=== PATIENT | male | born 1995 | race Caucasian/White ===

== ENCOUNTER 2020-02-19 15:21 | Outpatient (REF) | payer OTHER, SELFPAY | END 2020-02-19 15:22 | disposition home or self-care (01) | LOC: HO.LAB 15:21 | PROVIDERS: PCP Family Medicine; Visit Provider Internal Medicine | DX: Z20.828 Contact with and (suspected) exposure to other viral communicable diseases (principal) | CPT/HCPCS: U0003 ==

== ENCOUNTER 2020-08-04 13:10 | Outpatient (REF) | payer OTHER, SELFPAY ==
[2020-08-04 13:54] LABS: COVID-19 Test Negative (Negative)
== END 2020-08-04 13:11 | disposition home or self-care (01) ==
LOC: HO.LAB 13:10
PROVIDERS: Visit Provider Internal Medicine
DX: Z20.822 Contact with and (suspected) exposure to COVID-19 (principal)
CPT/HCPCS: 36415; 87635; C9803

== ENCOUNTER 2021-01-16 09:35 | Outpatient (REF) | payer OTHER, SELFPAY | END 2021-01-16 09:36 | disposition home or self-care (01) | LOC: HO.LAB 09:35 | PROVIDERS: PCP Family Medicine; Visit Provider Internal Medicine | DX: Z20.822 Contact with and (suspected) exposure to COVID-19 (principal) | CPT/HCPCS: C9803; U0003; U0005 ==

== ENCOUNTER 2024-12-23 19:52 | Emergency (ER) | payer MEDICAID, SELFPAY ==
[2024-12-23 19:54] VITALS: BP 164/100; PULSE 104; RESP 25; TEMP 36.6; O2SAT 98; BMI 23.6
--- NOTE | 2024-12-23 20:03 | ED_ITS ---
HPI - Allergic Reaction General Chief complaint: Allergic Reaction Stated complaint: stung by bee, allergic Time Seen by Provider: 12/23/24 19:58 History of Present Illness HPI narrative: Patient is a 29-year-old male has a history of anaphylactic reaction to bee stings. Patient got stung approximately 45 minutes prior to arrival use 1 EpiPen prior to arrival complaining of some shortness of breath. Symptoms not much better after the epinephrine. Came in for further evaluation. No significant heart issues in the past. No systemic complaints. Related Data Previous Rx's ?Medication ?Instructions ?Recorded diphenhydramine HCl 25 mg capsule 25 mg PO Q8H 5 days #15 caps 12/23/24 (Benadryl) epinephrine 0.3 mg/0.3 mL 0.3 mg (0.3 mL) IM ONCE PRN 12/23/24 injection, auto-injector (EpiPen) extreme reaction #1 ea famotidine 20 mg tablet (Pepcid) 20 mg PO BID 5 days # 10 tabs 12/23/24 prednisone 20 mg tablet 40 mg (2 x 20 mg) PO DAILY # 10 tabs 12/23/24 Allergies Allergy/AdvReac Type Severity Reaction Status Date / Time bee pollen (bees) Allergy Anaphylaxis Verified 12/23/24 19:56 Review of Systems Review of Systems: Positive history of anaphylaxis. Positive shortness of breath positive tightness in the throat Yes all other systems are reviewed and are negative PMFSH Past Medical History Attestation statement: The following information was validated with the patient. Social History Social History Smoked in Last 30 Days: No Use of substances other than those prescribed or required for medical reasons: No Advance Directives: No Advance Directives Information Provided: No Do you have a plan to hurt others: No Plan Physical Exam ED Exam Exam: Appearance: Alert. Oriented X3. No acute distress. Eyes: Pupils equal, round and reactive to light. ENT: Pharynx normal. Neck: Normal inspection. Neck supple. No lymph nodes noted. No crepitus CVS: Normal heart rate and rhythm. Pulses normal. Normal S1 and S2 Respiratory: No respiratory distress. Breath sounds normal. No Wheezing. No rales Abdomen: Soft and nontender. No rigidity. No distention. good BS x4 Skin: Skin warm and dry. Normal skin color. Normal skin turgor. Extremities: No lower extremity edema. Neurovascular intact to all extremities. No Lacerations. No Rash Neuro: Oriented X 3. No motor deficit. No sensory deficit. Moving all extermities. No slurred speech Vital Signs: Vital Signs - 24 hr 12/23/24 19:54 12/23/24 20:16 12/23/24 21:29 Temperature 97.9 F 98.2 F 97.6 F Pulse Rate 104 H 87 73 Respiratory Rate 25 H 18 14 Blood Pressure 164/100 H 148/90 H 130/77 Pulse Oximetry 98 96 95 Oxygen Delivery Method Room Air Room Air Room Air BMI result Body Mass Index 23.6 Medical Decision Making Medical Decision Making MDM Narrative: Patient is actually well appearing. Was given EpiPen prior to arrival. We gave patient has some steroid Benadryl Pepcid will monitor very closely. A L IV fluid was ordered. Currently in stable condition. Patient never got his IV medication. At approximately 22:00 patient's seems to be improving. Lungs are clear. Explained to patient the need for medications. Will give all his meds orally. Patient wants to go home. Explained to patient the need for close follow-up. Explained to patient the need to monitor him slightly after medication. Patient wants to leave. Does not want to wait. Explained to patient if worsening condition to return immediately. If he uses his epinephrine again he needs to come back. Differential Diagnosis Differential Diagnoses: The differential diagnosis associated with the presentation includes Anaphylactic shock Admission/Observation Consideration of admission/observation: Escalation of care including admission/observation considered Discharge Plan Discharge Clinical Impression: Anaphylaxis Patient Disposition: Home, Self-Care Instructions: Anaphylaxis (ED) Prescriptions: New prednisone 20 mg tablet 40 mg PO DAILY Qty: 10 0RF famotidine [Pepcid] 20 mg tablet 20 mg PO BID 5 Days Qty: 10 0RF diphenhydramine HCl [Benadryl] 25 mg capsule 25 mg PO Q8H 5 Days Qty: 15 0RF epinephrine [EpiPen] 0.3 mg/0.3 mL auto-injector 0.3 mg IM ONCE PRN (Reason: extreme reaction) Qty: 1 0RF Rx Instructions: for 2 doses Referrals: Gerardo To MD [Primary Care Provider, Internal Medicine] - 12/24/24 Print Language: Ivorian
[2024-12-23 20:16] VITALS: BP 148/90; PULSE 87; RESP 18; TEMP 36.8; O2SAT 96
--- OUTSIDE RECORDS SUMMARY | 2024-12-23 20:22 | XMS_ITS | Encounter Summary ---
Author Organization [facility] Address [address] [place] [address] Phone Care Team Providers Care Neck Band Setter Name Role Phone Raymond Mojica MD Primary Care Provider [phone] Encounter Details Date Type Department Care Team (Late st Contact Info) Description 11/28/2016 Conversion Encounter [facility] - [address], [address] [place] [address] Raymond Mojica MD [address] [place] [id number] Social History Tobacco Use Types Packs/Day Years Used Date Smoking Tobacco: Never Assessed Sex and Gender Information Value Date Recorded Sex Assigned at Not on file Legal Sex Male 10:54 PM EST Gender Identity Not on file Sexual Orientation Not on file documented as of this encounter Plan of Treatment Not on file documented as of this encounter Visit Diagnoses Not on filedocumented in this encounter Care Teams Neck Band Setter Relationship Specialty Start Date End Date Raymond Mojica MD [address] [place] [address] PCP - General 06/12/16 11/07/20 documented as of this encounter
--- OUTSIDE RECORDS SUMMARY | 2024-12-23 20:22 | XMS_ITS | Encounter Summary ---
Author Organization [facility] Address [address] [place] [phone] Phone Care Team Providers Care Radiosonde Operator Name Role Phone Raymond Mojica MD Primary Care Provider [phone] Reason for Visit * Reason Comments Med Refill Encounter Details Date Type Department Care Team (Late st Contact Info) Description 02/05/2017 Refill [facility] - [address], [address] [place] [address] Veto Zepeda MD [address] [place] [address] Acne vulgaris (Primary Dx) Social History Tobacco Use Types Packs/Day Years Used Date Smoking Tobacco: Never Assessed Sex and Gender Information Value Date Recorded Sex Assigned at Not on file Legal Sex Male 10:54 PM EST Gender Identity Not on file Sexual Orientation Not on file documented as of this encounter Miscellaneous Notes * Telephone Encounter - Veto Zepeda MD - 02/06/2017 6:21 AM EDT eRx sent documented in this encounter Plan of Treatment Not on file documented as of this encounter Visit Diagnoses Diagnosis Acne vulgaris- Primary Other acne documented in this encounter Care Teams Radiosonde Operator Relationship Specialty Start Date End Date Raymond Mojica MD [address] [place] [address] PCP - General 06/12/16 11/07/20 documented as of this encounter
--- OUTSIDE RECORDS SUMMARY | 2024-12-23 20:22 | XMS_ITS | Clinical Summary ---
Author Organization [facility] Address [address] [id number] Care Team Providers Care Spanish Language Lecturer Name Role Phone Gerardo To MD Primary Care Provider [phone] Allergies No known active allergies Medications Levetiracetam (KEPPRA) 1000 MG Tab 1 TABLET TWICE A DAY Active Social History Tobacco Use Types Packs/Day Years Used Date Smoking Tobacco: Never Assessed Sex and Gender Information Value Date Recorded Sex Assigned at Not on file Legal Sex Male 10:51 AM EDT Gender Identity Not on file Sexual Orientation Not on file Last Filed Vital Signs Vital Sign Reading Time Taken Comments Blood Pressure 148/81 07/31/2018 11:37 AM EDT Pulse 74 07/31/2018 11:37 AM EDT Temperature 36.7 C (98 F) 07/31/2018 11:37 AM EDT Respiratory Rate 16 07/31/2018 11:37 AM EDT Oxygen Saturation 98% 07/31/2018 11:37 AM EDT Inhaled Oxygen Concentration - - Weight - - Height - - Body Mass Index - - Plan of Treatment Health Maintenance Due Date Last Done Comments Hepatitis C Screening 1997 DTaP/Tdap/Td (1 - Tdap) 07/26/2015 Hep B (1 of 3 - 19+ 3-dose series) 2016 COVID-19 Vaccine ( season) 2024 Influenza (#1) 2024 03/08/2015, 01/21, 03/09/2013, Additional history exists Zoster (Shingrix) (1 of 2) 07/26/2047 HPV Vaccine (No Doses Required) Completed Hep A Aged Out No longer eligi ble based on patient's age to complete this topic Hib Aged Out No longer eligi ble based on patient's age to complete this topic Meningococcal ACWY Aged Out No longer eligible based on patient's age to complete this topic Pneumococcal Aged Out No longer eligi ble based on patient's age to complete this topic Insurance Care Teams Spanish Language Lecturer Relationship Specialty Start Date End Date Gerardo To MD [employer] [address] [place] [address] PCP - General Family Medicine 07/31/18
--- OUTSIDE RECORDS SUMMARY | 2024-12-23 20:22 | XMS_ITS | Clinical Summary ---
Author Organization [facility] Address [address] [place] [phone] Phone Care Team Providers Care Java Programming Professor Name Role Phone Unavailable Primary Care Provider Unavailabl e Medications TRETINOIN 0.05 % creamIndication s:Acne vulgaris APPLY TO THE AFFECTED AREA OF FACE DAILY IN THE EVENING AT BEDTIME 45 g 3 02/06/2017 Active Active Problems Problem Noted Date Diagnosed Date Attention-deficit hyperactivity disorder, combin ed type 03/08/2015 Acne vulgaris 01/14/2015 Family history of heart dise ase in male family member before age 55 07/18/2014 Benign nevus of skin 02/16/2014 Immunizations Immunization Administration Dates Next Due DTaP 08/15/2001, 9,02/11/1998,11/29,1997 HPV, Quadrivalent 02/16/2014,03/09/2013,03/06/20 12 Hep B, ped/adol 05/11/1998,1997,1997 Hib (PRP-T) 10/20/1998, 8,1997,10/06 IPV 08/15/2001,1997,1997 Influenza, injectable, quadr ivalent, preservative free 03/08/2015,02/16/2014,03/09/2013 Influenza, injectable, trivalent 03/06/2012 Influenza, intranasal, trivalent 01/04/2011 MMR 08/18/2002,10/20/1998 Meningococcal Conj (Menactra) MCV4P 03/08/2015,0 11/16/2009 OPV 07/29/1998 Td (adult) (MBL), 2 Lf tetan us toxoid, PF, adsorbed 11/04/2015 Tdap 11/16/2009 Varicella 08/22/2007,01/23/1999 Family History Relation Name Status Comments Father Alive Father: PA @39 Maternal Grandfather Mat GFa ther: Adult-onset diabetes [DM type 2] Mother Alive Mother: well Other 1 Adult-onset mark sonia [DM type 2] Other 2 cardiomyopathy, Other 3 Alive PA @39 Other 4 Alive well Other 5 of PA at 9 4, first PA at 65, Adult-onset diabetes [DM type 2] Other 6 PA @42, of PA at 59 Paternal Grandfather Pat GFa ther: PA @40, of PA at 59 Paternal Grandmother Pat GMo ther: of PA at 74, first PA at 63, Adult-onset diabetes [DM type 2] Social History Tobacco Use Types Packs/Day Years Used Date Smoking Tobacco: Never Assessed Sex and Gender Information Value Date Recorded Sex Assigned at Not on file Legal Sex Male 10:54 PM EST Gender Identity Not on file Sexual Orientation Not on file Last Filed Vital Signs Vital Sign Reading Time Taken Comments Blood Pressure 122/74 11/14/2015 12:00 AM EDT Pulse 116 11/14/2015 12:00 AM EDT Temperature 36.7 C (98.1 F) 12/10/2015 12:00 AM EDT Respiratory Rate - - Oxygen Saturation - - Inhaled Oxygen Concentration - - Weight 80.1 kg (176 lb 9.8 oz) 12/10/2015 12:00 AM EDT Height 169.5 cm (5' 6.75 ) 11/14/2015 12:00 AM E DT Body Mass Index 27.87 11/14/2015 12:00 AM EDT Plan of Treatment Health Maintenance Due Date Last Done Comments Influenza Vaccines (#1) 2024 03/08/20, 02/16/2014, 03/09/2013, Additional history exists COVID-19 Vaccine ( season) 2024 DTaP,Tdap,and Td Vaccines (8 - Td or Tdap) 11/03/2025 11/04/2015, 11/16/2009, 08/15/2001, Additional history exists Hepatitis B Vaccines Completed 05/11/1998, 1997, 1997 HIB Vaccines Completed 10/20/1998, 01/21, 1997, Additional history exists IPV Vaccines Completed 08/15/2001, 0 12/1998, 1997, Additional history exists MMR Vaccines Completed 08/18/2002, 10/20/1998 Varicella Vaccines Completed 08/22/2007, 01/23/1999 HPV Vaccines Completed 02/16/2014, 02/20, 03/06/2012 Meningococcal Vaccine Completed 03/08/2015, 010 Hepatitis A Vaccines Aged Out No long er eligible based on patient's age to complete this topic Men B Vaccine Aged Out No longer elig ible based on patient's age to complete this topic Pneumococcal Vaccine Aged Out No long er eligible based on patient's age to complete this topic
[2024-12-23 21:29] VITALS: BP 130/77; PULSE 73; RESP 14; TEMP 36.4; O2SAT 95
[2024-12-23 21:58] VITALS: BP 130/77; PULSE 73; RESP 14; TEMP 36.4; O2SAT 95
== END 2024-12-23 21:59 | disposition home or self-care (01) ==
PROVIDERS: Emergency Provider Emergency Medicine Emergency Medical Services; PCP Family Medicine
DX: R06.02 Shortness of breath (principal); T78.2XXA Anaphylactic shock, unspecified, initial encounter; T63.441A Toxic effect of venom of bees, accidental (unintentional), initial encounter; Y92.9 Unspecified place or not applicable
CPT/HCPCS: 99283; 99284